=== PATIENT | male | born 1935 | race Caucasian/White ===

== ENCOUNTER → 2016-12-03 | Outpatient (CLI) | payer MEDICARE ==
[2015-05-19 19:59] VITALS: BP 117/65
[~2016-12-03] MED LIST: ASPI81TA44 PO; CALC-98 PO; DICY10CA3 PO; ESCI10TA PO; IOHEXOL 240 MG/ML 50ML VIAL. PO ONE; IOHEXOL 300 MG/ML 100ML VIAL. IV ONE; METO25TA4 PO; MULT-245 PO; PANT40TA3 PO; TRAM50TA PO
--- NOTE | 2016-12-03 15:24 | KCIC ---
PROCEDURE CT study of the abdomen and pelvis with contrast HISTORY Left lower quadrant abdominal pain. History of diverticulitis. TECHNIQUE After IV infusion of 100 cc of Omnipaque 300, helical CT scanning of the abdomen and pelvis was performed. GI contrast was administered per mouth. One or more of the following individualized dose reduction techniques were utilized for this study: 1. Automated exposure control 2. Adjustment of the mA and/or kV according to patient size 3. Use of iterative reconstruction technique COMPARISON October 11, 2014. FINDINGS The liver and spleen and pancreas and gallbladder are normal. No extrahepatic biliary ductal dilatation is seen. No adrenal mass is evident. A left renal cyst is seen. No hydronephrosis or hydroureter is seen on either side. A small cyst of the right kidney is seen. The urinary bladder wall is smooth. Prostate gland is unchanged in size. No focal aneurysmal dilatation of the abdominal aorta is seen. No enlarged abdominal or pelvic lymphadenopathy is seen. Colonic diverticulosis is seen without diverticulitis. The appendix is not identified but there are no CT findings of appendicitis. The terminal ileum is unremarkable. No obstructive bowel pattern is seen. No free air or free fluid or inflammatory change is evident. Small stable umbilical hernia is seen containing only fat. No new anterior abdominal wall hernia is evident. No lung base consolidation is evident. No osteolytic process is seen. IMPRESSION Colonic diverticulosis without diverticulitis. No acute abnormality of the abdomen or pelvis is seen. Electronically signed by: Vinicio Ramires MD (Dec 03, 2016 15:23:15)
== END | disposition home or self-care (01) ==
LOC: KCIC CT 13:18
PROVIDERS: ATTEND Internal Medicine Gastroenterology
DX: R10.9 Unspecified abdominal pain (principal)
CPT/HCPCS: 74177; 82565; Q9966; Q9967

== ENCOUNTER → 2017-01-27 | Outpatient (CLI) | payer MEDICARE ==
[2015-05-19 19:59] VITALS: BP 117/65
[~2017-01-27] MED LIST changes: -IOHEXOL 240 MG/ML 50ML VIAL. PO ONE; -IOHEXOL 300 MG/ML 100ML VIAL. IV ONE; +REGADENOSON 0.4 MG/5 ML DISP.SYRIN. IV ONE
--- NOTE | 2017-01-27 19:52 | RAD ---
APPROVED REPORT Test Type: Pharmacological Stress Nurse/Tech: ANNY POOLE Test Indications: CHEST PAIN Cardiac History: HYPOTENSION, HEART CATH -, SEE EHR Medications: SEE EHR Medical History: NONE STATED, SEE EHR Resting ECG: SR Resting Heart Rate: 62 bpm Resting Blood Pressure: 114/71mmHg Pretest Chest Pain: No chest pain Nurse/Tech Notes LUNG SOUNDS CLEAR, S1S2 WNL. Consent: The procedure was explained to the patient in lay terms. Informed consent was witnessed. Scott eout was entered into [employer]. History and Stress Test performed by [facility] [employer]. Details Pharmacologic stress testing was performed using 0.4mg per 5ml of regadenoson given intravenously ove r 7-10 seconds. Stress Symptoms STOMACH PAIN, FACIAL FLUSHING, CHEST HEAVINESS, ALL RESOLVED BY END OF STUDY. POST EXERCISE Reason for Termination: Infusion complete Max HR: 98 bpm Max Blood Pressure: 123/65mmHg Chest Pain: No. Arrhythmia: No. ST Change: No. Imaging Protocol IMAGE PROTOCOL: Rest Tc-99m/stress Tc-99m 1 day Rest: Stress: Viability: Radiopharm.Tc99m [id number] Sestamibi [id number] 35.5mCi Duration 17min. 15min. Img Date 01/27/2017 01/27/2017 Inj-Img [id number]. 60min. Rest Admin Site:IV - Right ForearmAdministrator:ARTIS Kwok Stress Admin Site: IV - Right ForearmAdministrator: ARTIS Kwok STRESS DATA End Diast. Vol.59.0mlAv. Heart Rate76.0bpm End Syst. Vol.13.0mlCO Index BSA0.0L/min Myocardial Jyvs411.0gEject. Wpoysrgn72.0% Stress Rates Pk. Fill Rate3.03EDV/secLVtime Pk. Fill 225.31msec Pk. Empty Rate4.95ESV/secLVtime Pk. Qhhcg442.69msec 10/05 Pk. Fill0.76EDV/sec Stress Scores Regional WT2.00Summed WT13.00 Regional WM0.00Summed WM1.00 LV Perf. Quant 17 Seg. SSS0.00 17 Seg. SRS0.00 17 Seg. SDS0.00 Stress Defect Extent (% LAD)0.00Rest Defect Extent (% LAD)0.00Rev. Defect Extent (% LAD)0.00 Stress Defect Extent (% LCX) 5.00Rest Defect Extent (% LCX)0.00Rev. Defect Extent (% LCX)0.00 Stress Defect Extent (% RCA)0.00Rest Defect Extent (% RCA)0.00Rev. Defect Extent (% RCA)0.00 Stress Defect Extent (% FLORENCE)0.90Rest Defect Extent (% FLORENCE)0.00Rev. Defect Extent (% FLORENCE)0.00 Conclusion 1. No electrocardiographic changes just above myocardial ischemia with pharmacological stress. 2. No perfusion defects to suggest myocardial ischemia or scar. 3. Normal wall motion and wall thickening with an ejection fraction of 78%. 4. Scan indicates low risk for future cardiac events.
== END | disposition home or self-care (01) ==
LOC: NM 09:09
PROVIDERS: ATTEND Internal Medicine Cardiovascular Disease
DX: I20.8 Other forms of angina pectoris (principal)
CPT/HCPCS: 78452; 93017; 96374; 96375; 96376; A9500; J2785

== ENCOUNTER → 2017-03-01 | Outpatient (CLI) | payer MEDICARE ==
[2015-05-19 19:59] VITALS: BP 117/65
[~2017-03-01] MED LIST changes: -REGADENOSON 0.4 MG/5 ML DISP.SYRIN. IV ONE
--- NOTE | 2017-03-01 15:24 | KCIC ---
EXAM: Lumbar spine MRI without contrast. HISTORY: Left lower extremity radiculopathy. TECHNIQUE: Multiplanar, multisequence magnetic resonance imaging of the lumbar spine was performed without contrast. COMPARISON: 10/09/2014. FINDINGS: There is lumbar dextroscoliosis centered at L3. There is grade 1 anterolisthesis of L4 on L5 and L5-S1, measuring 3 mm. There is degenerative endplate remodeling with disc space narrowing and osteophytosis predominantly at L4-L5 and L5-S1. There is disc desiccation. The conus terminates at L1. There are multiple endplate Schmorl's nodes. There is no suspicious osseous lesion. There is mild epidural lipomatosis at L3-L4. There are multiple simple appearing renal cysts, the largest of which measures 2.1 cm on the left. At T11-T12, there is a disc bulge and endplate remodeling. There is mild facet arthropathy. There is mild bilateral foraminal stenosis. At T12-L1, there is a disc bulge and endplate remodeling. There is mild facet arthropathy. There is hypertrophy of the ligamentum flavum. There is no stenosis. At L1-L2, there is a disc bulge and endplate remodeling. There is mild hypertrophy of the ligamentum flavum. There is no stenosis. At L2-L3, there is a left paracentral extraforaminal extraforaminal and right foraminal disc protrusion superimposed on a disc bulge and endplate remodeling. There is mild facet arthropathy. There is hypertrophy of the ligamentum flavum. There is abutment of the exiting left L2 nerve root without significant foraminal stenosis. There is minimal central canal stenosis. At L3-L4, there is a disc bulge and endplate remodeling. There is mild facet arthropathy. There is epidural lipomatosis. There is mild central canal stenosis. At L4-L5, there is a broad-based posterior central disc protrusion superimposed on a disc bulge and right lateral predominant endplate osteophytosis. There is mild right and severe left facet arthropathy. There are right hemilaminectomy changes. There is anterolisthesis. There is moderate right foraminal stenosis with effacement of the exiting right L4 nerve root. There is abutment of the exiting left L4 nerve root without significant left foraminal stenosis. There is decompression of the thecal sac. At L5-S1, there is a left foraminal and extra foraminal disc protrusion with slight superior extrusion superimposed on a disc bulge and endplate modeling. There is a moderate viral facet arthropathy. There is anterolisthesis. There is mild left foraminal stenosis with abutment of the exiting left L5 nerve root. There is minimal central canal stenosis. IMPRESSION: 1. 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 This results in foraminal and central canal stenosis before mentioned levels. This is similar compared to the prior study. 2. Lumbar scoliosis and mild grade 1 anterolisthesis of L4 on L5 and L5 on S1, stable in appearance. 3. Right hemilaminectomy changes at L4-5. Electronically signed by: Chiquita Henderson MD (03/01/2017 3:21 PM)
--- NOTE | 2017-03-01 16:55 | KCIC ---
MR of the musculoskeletal pelvis HISTORY: Left ischial tuberosity bursitis. Pain, aggravated by a lateral movement. TECHNIQUE: Routine multiplanar sequences were obtained. FINDINGS: Near complete rupture of the conjoint tendon of the semitendinosis and long head of the biceps femoris, from the ischium. At least 90 percent of the tendon tissue is torn. Mild distal retraction, up to 3 cm. Mild fluid and hemorrhage identified at the location of the tear and extending into the proximal muscle. Mild avulsive or degenerative edema at the underlying ischium. The semimembranosus tendon attachment demonstrates some tendinosis but otherwise appears mostly intact at its ischial origin. Mild tendinosis at the right hamstring tendon attachment without evidence of a tear. Other major tendon attachment in the field of view appear intact. No bone lesion or acute fracture. No evidence of femoral head osteonecrosis. Pubic symphysis is intact. No significant joint effusion at either hip. No evidence of obvious labral tear or para labral cyst. Mild primary osteoarthritis of both hips. Sacroiliac joints appear intact. Mild fluid signal identified lateral to the right greater trochanter, could indicate mild bursitis here. There is probable gluteus minimus and medius tendinosis on the right. These are incompletely visualized, however. IMPRESSION: 1. Proximal left hamstring tear at the ischial attachment. This consists of a near complete rupture of the conjoint semitendinosis and biceps femoris tendon. 2. Mild fluid or bursitis adjacent to the right greater trochanter. Although visualization is limited, there does appear to be mild right gluteus minimus and medius tendinosis. Electronically signed by: Vickey Mao MD (03/01/2017 4:52 PM)
== END | disposition home or self-care (01) ==
LOC: KCIC MRI 13:42
PROVIDERS: ATTEND Physical Medicine & Rehabilitation
DX: M54.16 Radiculopathy, lumbar region (principal); M48.06 Spinal stenosis, lumbar region; M41.86 Other forms of scoliosis, lumbar region; N28.1 Cyst of kidney, acquired; M76.892 Other specified enthesopathies of left lower limb, excluding foot; M12.88 Other specific arthropathies, not elsewhere classified, other specified site
CPT/HCPCS: 72148; 72195

== ENCOUNTER 2017-03-05 13:00 | Inpatient (IN) | payer MEDICARE ==
[~2017-03-05] VITALS: Ht 170.2 cm; Wt 93.4 kg
[2017-03-05] MEDS ORDERED: IV NORMAL SALINE 1000ML BAG 1,000 ML IV ONE ×2 (13:30→14:30)
--- NOTE | 2017-03-05 13:37 | RAD ---
Indication: Chest pain. Time of exam 1331 hours. Correlation is made with prior study 11/19/2011. FINDINGS: The heart size is normal. The lungs are clear. No pleural effusion or pneumothorax is identified. The pulmonary vascularity is normal. IMPRESSION: No acute abnormality detected.
[2017-03-05 13:41] LABS: BASO # 0.1 x10^3/uL (0.0-0.2); BASO % 1 % (0-3); EOS % 4 % (0-3); HEMATOCRIT 44.1 % (39.0-53.0); HEMOGLOBIN 15.4 g/dL (13.0-17.5); LYMPH # 2.3 x10^3/uL (1.0-4.8); LYMPH % 24 % (24-48); MEAN CORPUSCULAR HEMOGLOBIN 33 pg (25-35); MEAN CORPUSCULAR HGB CONC 35 g/dL (31-37); MEAN CORPUSCULAR VOLUME 95 fL (79-100); MONO % 8 % (0-9); NEUT % 64 % (31-73); PLATELET COUNT 227 x10^3/uL (140-400); RED BLOOD COUNT 4.63 x10^6/uL (4.30-5.70); RED CELL DISTRIBUTION WIDTH 12.8 % (11.5-14.5); WHITE BLOOD COUNT 9.6 x10^3/uL (4.0-11.0)
[2017-03-05 13:49] LABS: INR 1.1 (0.8-1.1); PROTHROMBIN TIME PATIENT 13.9 SEC (11.7-14.0)
[2017-03-05 13:52] LABS: GFR 71.9; POTASSIUM 4.1 mmol/L (3.5-5.1)
[2017-03-05 13:55] LABS: ETHANOL < 10 mg/dL (0-10)
--- NOTE | 2017-03-05 13:56 | RAD ---
Indication: General weakness. Axial imaging through the brain was performed without contrast. Correlation is made with prior head CT from 11/19/2011. The ventricles and sulci appear appropriate for the patient's age. No sulcal effacement, midline shift or hemorrhage is detected. The cisterns are patent. The visualized paranasal sinuses are clear. Impression: No acute intracranial process is identified. PQRS Compliance Statement: One or more of the following individualized dose reduction techniques were utilized for this examination: 1. Automated exposure control 2. Adjustment of the mA and/or kV according to patient size 3. Use of iterative reconstruction technique
[2017-03-05 13:58] LABS: ALBUMIN 3.6 g/dL (3.4-5.0); TOTAL BILIRUBIN 0.6 mg/dL (0.2-1.0); TOTAL PROTEIN 7.2 g/dL (6.4-8.2)
--- NOTE | 2017-03-05 14:06 | PHYS DOC ---
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 He says that this started all of a sudden this morning around 8 AM and he has been feeling poorly all day long. He says that he feels some abnormal sensation on his chest but denies any diaphoresis nausea vomiting or shortness of breath. He looks and feels very poorly but he is in no obvious distress. Review of Systems Review of Systems Constitutional: Denies fever or chills [] Eyes: Denies change in visual acuity, redness, or eye pain [] HENT: Denies nasal congestion or sore throat [] Respiratory: Denies cough or shortness of breath [] Cardiovascular: No additional information not addressed in HPI [] GI: Denies abdominal pain, nausea, vomiting, bloody stools or diarrhea [] : Denies dysuria or hematuria [] Musculoskeletal: Denies back pain or joint pain [] Integument: Denies rash or skin lesions [] Neurologic: Denies headache, focal weakness or sensory changes [] Current Medications Current Medications Current Medications Medications (Trade) Dose Ordered Sig/Chepe Start Time Stop Time Status Last Admin Dose Admin Sodium Chloride 1,000 ml @ 1,000 mls/hr 1X ONCE 03/05/17 13:30 03/05/17 14:29 DC 03/05/17 13:46 1,000 MLS/HR Allergies Allergies Allergies Coded Allergies Type Severity Reaction Last Updated Verified metronidazole Allergy Unknown 03/01/17 No Physical Exam Physical Exam Constitutional: Well developed, well nourished, no acute distress, non-toxic appearance. [] HENT: Normocephalic, atraumatic, bilateral external ears normal, oropharynx moist, no oral exudates, nose normal. [] Eyes: PERRLA, EOMI, conjunctiva normal, no discharge. [] Neck: Normal range of motion, no tenderness, supple, no stridor. [] Cardiovascular:Heart rate regular rhythm, no murmur [] Lungs & Thorax: Bilateral breath sounds clear to auscultation [] Abdomen: Bowel sounds normal, soft, no tenderness, no masses, no pulsatile masses. [] Skin: Warm, dry, no erythema, no rash. [] Back: No tenderness, no CVA tenderness. [] Extremities: No tenderness, no cyanosis, no clubbing, ROM intact, no edema. [] Neurologic: Alert and oriented X 3, normal motor function, normal sensory function, no focal deficits noted. [] Current Patient Data Vital Signs Vital Signs Date Time Temp Pulse Resp B/P (MAP) Pulse Ox O2 Delivery O2 Flow Rate FiO2 03/05/17 13:08 97.7 72 18 122/71 (88) 97 Room Air 97.7 Lab Values Laboratory Tests Test 03/05/17 13:25 White Blood Count 9.6 x10^3/uL (4.0-11.0) Red Blood Count 4.63 x10^6/uL (4.30-5.70) Hemoglobin 15.4 g/dL (13.0-17.5) Hematocrit 44.1 % (39.0-53.0) Mean Corpuscular Volume 95 fL (79-100) Mean Corpuscular Hemoglobin 33 pg (25-35) Mean Corpuscular Hemoglobin Concent 35 g/dL (31-37) Red Cell Distribution Width 12.8 % (11.5-14.5) Platelet Count 227 x10^3/uL (140-400) Neutrophils (%) (Auto) 64 % (31-73) Lymphocytes (%) (Auto) 24 % (24-48) Monocytes (%) (Auto) 8 % (0-9) Eosinophils (%) (Auto) 4 % (0-3) H Basophils (%) (Auto) 1 % (0-3) Neutrophils # (Auto) 6.1 x10^3uL (1.8-7.7) Lymphocytes # (Auto) 2.3 x10^3/uL (1.0-4.8) Monocytes # (Auto) 0.7 x10^3/uL (0.0-1.1) Eosinophils # (Auto) 0.4 x10^3/uL (0.0-0.7) Basophils # (Auto) 0.1 x10^3/uL (0.0-0.2) Prothrombin Time 13.9 SEC (11.7-14.0) Prothrombin Time INR 1.1 (0.8-1.1) PTT 34 SEC (24-38) Sodium Level 141 mmol/L (136-145) Potassium Level 4.1 mmol/L (3.5-5.1) Chloride Level 105 mmol/L (98-107) Carbon Dioxide Level 27 mmol/L (21-32) Anion Gap 9 (6-14) Blood Urea Nitrogen 19 mg/dL (8-26) Creatinine 1.0 mg/dL (0.7-1.3) Estimated GFR (Cockcroft-Gault) 71.9 BUN/Creatinine Ratio 19 (6-20) Glucose Level 136 mg/dL (70-99) H Lactic Acid Level 2.0 mmol/L (0.4-2.0) Calcium Level 9.0 mg/dL (8.5-10.1) Magnesium Level 2.0 mg/dL (1.8-2.4) Total Bilirubin 0.6 mg/dL (0.2-1.0) Aspartate Amino Transferase (AST) 24 U/L (15-37) Alanine Aminotransferase (ALT) 26 U/L (16-63) Alkaline Phosphatase 77 U/L (46-116) Creatine Kinase 107 U/L (39-308) Troponin I Quantitative < 0.017 ng/mL (0.000-0.055) PI-Bft-Q-Type Natriuretic Peptide 36 pg/mL (0-449) Total Protein 7.2 g/dL (6.4-8.2) Albumin 3.6 g/dL (3.4-5.0) Albumin/Globulin Ratio 1.0 (1.0-1.7) Lipase 117 U/L (73-393) Thyroid Stimulating Hormone (TSH) 1.172 uIU/mL (0.358-3.74) Salicylates Level < 2.8 mg/dL (2.8-20.0) L Salicylate Last Dose Date Unknown Salicylate Last Dose Time Unknown Acetaminophen Level < 2 mcg/ml (10-30) L Acetaminophen Last Dose Date Unknown Acetaminophen Last Dose Time Unknown Ethyl Alcohol Level < 10 mg/dL (0-10) Laboratory Tests 03/05/17 13:25 Laboratory Tests 03/05/17 13:25 EKG EKG Sinus rhythm at 64 bpm with normal axis no obvious ST elevation or depression and normal T waves. Radiology/Procedures Radiology/Procedures Indication: General weakness. Axial imaging through the brain was performed without contrast. Correlation is made with prior head CT from 11/19/2011. The ventricles and sulci appear appropriate for the patient's age. No sulcal effacement, midline shift or hemorrhage is detected. The cisterns are patent. The visualized paranasal sinuses are clear. Impression: No acute intracranial process is identified. PQRS Compliance Statement: One or more of the following individualized dose reduction techniques were utilized for this examination: 1. Automated exposure control 2. Adjustment of the mA and/or kV according to patient size 3. Use of iterative reconstruction technique DICTATED and SIGNED BY: DEANN MAYER MD DATE: 03/05/17 7715 Course & Med Decision Making Course & Med Decision Making Patient has nonspecific weakness however he looks like he feels quite miserable. His workup is mostly benign be given how he looks and feels we'll go ahead and admit for further observation and treatment. Dragon Disclaimer Dragon Disclaimer This electronic medical record was generated, in whole or in part, using a voice recognition dictation system. Departure Departure Impression: Primary Impression: Weakness Disposition: ADMITTED INPATIENT Admitting Physician: Elizabeth Delgado Condition: STABLE Referrals: TWIN CALDERON (PCP) LAMONT AHUMADA DO Mar 05, 2017 14:05
[2017-03-05] MEDS ORDERED: ONDANSETRON PF 4 MG/2 ML VIAL. IV PRN (14:45)
[2017-03-05] MEDS ORDERED: fentaNYL PF VIAL 100 MCG/2 ML VIAL IV PRN (14:45)
[2017-03-05] MEDS ORDERED: ONDANSETRON PF 4 MG/2 ML VIAL. IV ONE (15:00)
[2017-03-05 15:45] LABS: BILIRUBIN,URINE NEGATIVE (NEG); GLUCOSE,URINE NEGATIVE (NEG); NITRITE,URINE NEGATIVE (NEG); PROTEIN,URINE NEGATIVE (NEG-TRACE); UROBILINOGEN,URINE 0.2 mg/dL (0.2 mg/dL)
[2017-03-05 15:50] VITALS: BP 131/78
[2017-03-05 16:03] LABS: BARBITURATES NEG (NEG); BENZODIAZEPINES NEG (NEG); CANNABINOIDS NEG (NEG); COCAINE NEG (NEG); METHADONE NEG (NEG); OPIATES NEG (NEG); PHENCYCLIDINE NEG (NEG)
[2017-03-05 16:04] LABS: BACTERIA,URINE 0 /HPF (0-FEW); RBC,URINE 0 /HPF (0-2); WBC,URINE RARE /HPF (0-4)
[2017-03-05] MEDS ORDERED: PNEUMOCOCCAL VAX SCREEN BY RX. MC ONE (16:30)
[2017-03-05] MEDS ORDERED: TRAM50TA PO (17:02)
[2017-03-05] MEDS ORDERED: ALPR0.5T6 PO (17:02)
[2017-03-05] MEDS ORDERED: METO25TA4 PO (17:03)
[2017-03-05] MEDS ORDERED: PANT40TA5 PO (17:03)
[2017-03-05] MEDS ORDERED: PNEUMOC CONJ VACC 23-VALENT 0.5 ML VIAL. VAX IM ONE (18:00)
--- NOTE | 2017-03-05 18:54 | HP ---
ADMIT DATE: 03/05/2017 CHIEF COMPLAINT: Weakness. HISTORY OF PRESENT ILLNESS: The patient is a pleasant 81-year-old male who appears younger than his stated age. 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 He basically was doing well, but this Tuesday he just got very weak. When he got to the ER, we scanned his brain. We have checked his labs. There is really not much that we have discovered just yet, but the patient clinically seems to be sick. He is a little depressed about this. I have discussed the case with the ER physician. We are going to go ahead and admit the patient and consult his counter attendant, Dr. Mccormack, and give him some empiric IV fluids. PAST MEDICAL HISTORY: Pretty benign. Please refer to the computerized H and P. ALLERGIES: None. FAMILY HISTORY: Diabetes. 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 He does not drink, smoke, or take drugs. He is . MEDICATIONS: Reviewed. Please refer to the MRAD. REVIEW OF SYSTEMS: GENERAL: No history of weight change, weakness, or fevers. SKIN: No bruising, hair changes, or rashes. EYES: No blurred, double, or loss of vision. NOSE AND THROAT: No history of nosebleeds, hoarseness, or sore throat. HEART: No history of palpitations, chest pain, or shortness of breath on exertion. LUNGS: Denies cough, hemoptysis, wheezing, or shortness of breath. GASTROINTESTINAL: Denies changes in appetite, nausea, vomiting, diarrhea, or constipation. GENITOURINARY: No history of frequency, urgency, hesitancy, or nocturia. NEUROLOGIC: He complains of generalized weakness. PSYCHIATRIC: No history of panic, anxiety, or depression. ENDOCRINE: No history of heat or cold intolerance, polyuria, or polydipsia. EXTREMITIES: Denies muscle weakness, joint pain, pain on walking, or stiffness. PHYSICAL EXAMINATION: VITAL SIGNS: Temperature afebrile, pulse 68, respirations 18, and blood pressure 116/71. GENERAL: He is alert, cooperative, weak. HEART: Normal S1, S2. LUNGS: Clear. ABDOMEN: Soft. EXTREMITIES: No edema. SKIN: No rashes. ENDOCRINE: No thyromegaly. LYMPHATICS: No cervical nodes. HEMATOPOIETIC: No bruising. PSYCHIATRIC: He seems a little depressed. LABORATORY DATA: Reviewed. ASSESSMENT AND PLAN: Weakness and perhaps psychosomatic. Perhaps, he has got underlying occult infection. I am going to go ahead and give him some empiric IV fluids. Consult his counter attendant, Dr. Mccormack. We will try to slowly resume his home medications. PT and OT. KVNG ALCANTAR DO DR: ABDIRASHID/osmar JOB#: [id number] / [id number]
[2017-03-05 19:00] VITALS: BP 93/57
[2017-03-05] MEDS ORDERED: traMADol 50 MG TABLET PO PRN (19:30)
[2017-03-05] MEDS: PANTOPRAZOLE 40 MG TABLET.DR. PO SCH (20:11)
[2017-03-05] MEDS: ALPRAZolam 0.5 MG TABLET PO PRN (20:11)
[2017-03-05 23:00] VITALS: BP 117/74
[2017-03-06 03:00] VITALS: BP 118/70
[2017-03-06] MEDS: METOPROLOL TART IMMED RELEASE 25 MG TABLET. PO SCH ×2 (03:21→09:04)
[2017-03-06 06:07] LABS: BASO # 0.1 x10^3/uL (0.0-0.2); BASO % 1 % (0-3); EOS % 4 % (0-3); HEMATOCRIT 41.5 % (39.0-53.0); HEMOGLOBIN 14.6 g/dL (13.0-17.5); LYMPH # 2.6 x10^3/uL (1.0-4.8); LYMPH % 26 % (24-48); MEAN CORPUSCULAR HEMOGLOBIN 33 pg (25-35); MEAN CORPUSCULAR HGB CONC 35 g/dL (31-37); MEAN CORPUSCULAR VOLUME 93 fL (79-100); MONO % 9 % (0-9); NEUT % 61 % (31-73); PLATELET COUNT 209 x10^3/uL (140-400); RED BLOOD COUNT 4.45 x10^6/uL (4.30-5.70); RED CELL DISTRIBUTION WIDTH 12.9 % (11.5-14.5); WHITE BLOOD COUNT 10.1 x10^3/uL (4.0-11.0)
[2017-03-06 06:16] LABS: CALCIUM 8.8 mg/dL (8.5-10.1); CREATININE 1.1 mg/dL (0.7-1.3); GFR 64.4; POTASSIUM 4.1 mmol/L (3.5-5.1)
--- NOTE | 2017-03-06 07:23 | ACF ---
Admission Forms Criteria TELEMETRY CARE Telemetry Admission Guidelines (Place 'X' for any and all applicable criteria): Admission to telemetry [A] may be indicated for ANY ONE of the following(1)(2)(3 )(4)(5): [X]I. Cardiac disease, including ANY ONE of the following (9)(10)(11)(12)(13 ): [ ]a) Postacute TX [ ]b) Low-risk patients with ST-segment elevation TX who have undergone successful percutaneous coronary intervention [ ]c) Unstable angina [ ]d) Suspected TX (until it is ruled out) [ ]e) Post cardiac surgery (first 48 to 72 hours unless complications occur) [X]f) Acute arrhythmias (including significant tachycardia or bradycardia) [B] [ ]g) Firing of an implantable cardioverter defibrillator [C] [ ]h) Suspected pacemaker or implantable cardioverter defibrillator malfunction (10) [ ]i) New administration or adjustment of an antiarrhythmic drug [D ] [ ]j) Child admitted for acute congestive heart failure [ ]j) Long QT syndrome [ ]k) Advanced heart block (eg, second-degree Mobitz type II, third- degree heart block) [ ]l) Acute myocarditis or pericarditis [ ]m) Short-term (ambulatory or inpatient) monitoring after a cardiac procedure as indicated by ANY ONE of the following [E]: [ ]i) Electrophysiologic studies [ ]ii) Percutaneous coronary intervention with stent placement [ ]iii) Pacemaker placement with cardiac conduction defect [ ]iv) Implantable cardiac defibrillator placement [ ]II. Drug overdose or poisoning with substance that causes arrhythmias or QT prolongation (eg, phenothiazines, sympathomimetic agents, cyclic antidepressants, digitalis, antiarrhythmic drugs)(15) [ ]III. Short-term (ambulatory or inpatient) monitoring after therapeutic or diagnostic procedure requiring conscious sedation or anesthesia (eg, endoscopy, elective cardioversion) [ ]IV. Acute cerebrovascular even[F](18) [ ]V. Massive blood transfusion (eg, at least 10 units of packed red blood cells in 24 hours) [ ]. Variceal bleeding after endoscopy, sclerotherapy, or IV vasopressin [ ]VII. Uncorrected electrolyte abnormalities associated with an increased risk of dangerous arrhythmia [G]; examples include [ ]a) Hyperkalemia with attributable ECG changes [ ]b) Potassium greater than 6.5 mmol/L (mEq/L) in a patient without history of chronic renal disease [ ]c) Prolonged QT attributed to hypokalemia, hypomagnesemia, or hypocalcemia [ ]VIII.Unexplained syncope or other neurologic event suspected of being due to arrhythmia due to a finding that increases risk; examples include(19)(20)(21): [ ]a) High-risk ECG findings (eg, bifascicular block, bradycardia, abnormal QT interval, ventricular pre- excitation) [ ]b) History of previous syncope due to arrhythmia [ ]c) Abnormal ventricular function (eg, reduced ejection fraction ) [ ]d) Exertional or supine syncope [ ]e) Concerning syncope characteristics (eg, sudden loss of consciousness without prodrome) [ ]f) Family history of sudden [ ]g) Use of arrhythmogenic medication [ ]h) Suspected cardiac ischemia [ ]i) Known channelopathy (eg, long QT syndrome, Brugada syndrome, or catecholaminergic paroxysmal ventricular tachycardia) [ ]j) Known structural heart disease (eg, hypertrophic cardiomyopathy , severe valvular disease) [ ]k) Palpitations preceding syncope The original Monitor content created by Monitor has been revised. The portions of the content which have been revised are identified through the use of italic text or in bold, and Monitor has neither reviewed nor approved the modified material. All other unmodified content is copyright Monitor. Please see references footnoted in the original Monitor edition 2016 Admission Criteria Met?: Yes DAYNA SAXENA Mar 06, 2017 07:23
[2017-03-06] MEDS: PANTOPRAZOLE 40 MG TABLET.DR. PO SCH (07:38)
[2017-03-06] MEDS: ALPRAZolam 0.5 MG TABLET PO PRN (07:38)
[2017-03-06 07:45] VITALS: BP 143/79
[2017-03-06] MEDS ORDERED: ASPIRIN CHEWABLE 81 MG TABLET. PO SCH (08:00)
[2017-03-06 10:42] VITALS: BP 115/67
--- NOTE | 2017-03-06 11:26 | EKG ---
[facility] [address] [place] [address] Test Date: 2017-03-05 Test Time: 13:10:57 Pat Name: NABOR GRIFFITHS Department: Room: [facility] Gender: M Prescriptionist: : 1935 Requested By: LAMONT AHUMADA Order Number: [id number] Reading MD: Aldo Mendieta Measurements Intervals [place] [employer] Rate: 64 P: 34 NV: 190 QRS: 29 QRSD: 90 T: 39 QT: 392 QTc: 408 Interpretive Statements SINUS RHYTHM NONSPECIFIC ST-T WAVE CHANGES. RI6.01 No previous ECG available for comparison Electronically Signed On 03-09-2017 9:42:09 CDT by Aldo Mendieta
--- NOTE | 2017-03-06 12:38 | PDOC ---
PROGRESS NOTES Chief Complaint Chief Complaint weakness History of Present Illness History of Present Illness Pt back to baseline. VSS Will discharge Vitals Vitals Vital Signs Date Time Temp Pulse Resp B/P (MAP) Pulse Ox O2 Delivery O2 Flow Rate FiO2 03/06/17 10:42 97.5 65 18 115/67 (83) 94 Room Air 97.5 Physical Exam General: Alert, Oriented X3, Cooperative Heart: Regular rate, Normal S1, Normal S2 Lungs: Clear, Wheezing Abdomen: Normal bowel sounds, Soft Extremities: No clubbing, No cyanosis Skin: No rashes, No breakdown Labs LABS Laboratory Tests Test 03/05/17 13:25 03/05/17 15:34 03/06/17 05:00 White Blood Count 9.6 x10^3/uL (4.0-11.0) 10.1 x10^3/uL (4.0-11.0) Red Blood Count 4.63 x10^6/uL (4.30-5.70) 4.45 x10^6/uL (4.30-5.70) Hemoglobin 15.4 g/dL (13.0-17.5) 14.6 g/dL (13.0-17.5) Hematocrit 44.1 % (39.0-53.0) 41.5 % (39.0-53.0) Mean Corpuscular Volume 95 fL (79-100) 93 fL (79-100) Mean Corpuscular Hemoglobin 33 pg (25-35) 33 pg (25-35) Mean Corpuscular Hemoglobin Concent 35 g/dL (31-37) 35 g/dL (31-37) Red Cell Distribution Width 12.8 % (11.5-14.5) 12.9 % (11.5-14.5) Platelet Count 227 x10^3/uL (140-400) 209 x10^3/uL (140-400) Neutrophils (%) (Auto) 64 % (31-73) 61 % (31-73) Lymphocytes (%) (Auto) 24 % (24-48) 26 % (24-48) Monocytes (%) (Auto) 8 % (0-9) 9 % (0-9) Eosinophils (%) (Auto) 4 % (0-3) 4 % (0-3) Basophils (%) (Auto) 1 % (0-3) 1 % (0-3) Neutrophils # (Auto) 6.1 x10^3uL (1.8-7.7) 6.2 x10^3uL (1.8-7.7) Lymphocytes # (Auto) 2.3 x10^3/uL (1.0-4.8) 2.6 x10^3/uL (1.0-4.8) Monocytes # (Auto) 0.7 x10^3/uL (0.0-1.1) 0.9 x10^3/uL (0.0-1.1) Eosinophils # (Auto) 0.4 x10^3/uL (0.0-0.7) 0.4 x10^3/uL (0.0-0.7) Basophils # (Auto) 0.1 x10^3/uL (0.0-0.2) 0.1 x10^3/uL (0.0-0.2) Prothrombin Time 13.9 SEC (11.7-14.0) Prothromb Time International Ratio 1.1 (0.8-1.1) Activated Partial Thromboplast Time 34 SEC (24-38) Sodium Level 141 mmol/L (136-145) 142 mmol/L (136-145) Potassium Level 4.1 mmol/L (3.5-5.1) 4.1 mmol/L (3.5-5.1) Chloride Level 105 mmol/L (98-107) 108 mmol/L (98-107) Carbon Dioxide Level 27 mmol/L (21-32) 26 mmol/L (21-32) Anion Gap 9 (6-14) 8 (6-14) Blood Urea Nitrogen 19 mg/dL (8-26) 16 mg/dL (8-26) Creatinine 1.0 mg/dL (0.7-1.3) 1.1 mg/dL (0.7-1.3) Estimated GFR (Cockcroft-Gault) 71.9 64.4 BUN/Creatinine Ratio 19 (6-20) Glucose Level 136 mg/dL (70-99) 105 mg/dL (70-99) Lactic Acid Level 2.0 mmol/L (0.4-2.0) Calcium Level 9.0 mg/dL (8.5-10.1) 8.8 mg/dL (8.5-10.1) Magnesium Level 2.0 mg/dL (1.8-2.4) Total Bilirubin 0.6 mg/dL (0.2-1.0) Aspartate Amino Transf (AST/SGOT) 24 U/L (15-37) Alanine Aminotransferase (ALT/SGPT) 26 U/L (16-63) Alkaline Phosphatase 77 U/L (46-116) Creatine Kinase 107 U/L (39-308) Troponin I Quantitative < 0.017 ng/mL (0.000-0.055) EI-Qng-C-Type Natriuretic Peptide 36 pg/mL (0-449) Total Protein 7.2 g/dL (6.4-8.2) Albumin 3.6 g/dL (3.4-5.0) Albumin/Globulin Ratio 1.0 (1.0-1.7) Lipase 117 U/L (73-393) Thyroid Stimulating Hormone (TSH) 1.172 uIU/mL (0.358-3.74) Salicylates Level < 2.8 mg/dL (2.8-20.0) Salicylate Last Dose Date Unknown Salicylate Last Dose Time Unknown Acetaminophen Level < 2 mcg/ml (10-30) Acetaminophen Last Dose Date Unknown Acetaminophen Last Dose Time Unknown Ethyl Alcohol Level < 10 mg/dL (0-10) Urine Collection Type Unknown Urine Color Yellow Urine Clarity Clear Urine pH 7.0 Urine Specific [place] 1.010 Urine Protein Negative mg/dL (NEG-TRACE) Urine Glucose (UA) Negative mg/dL (NEG) Urine Ketones (Stick) Negative mg/dL (NEG) Urine Blood Negative (NEG) Urine Nitrite Negative (NEG) Urine Bilirubin Negative (NEG) Urine Urobilinogen Dipstick 0.2 mg/dL (0.2 mg/dL) Urine Leukocyte Esterase Negative (NEG) Urine RBC 0 /HPF (0-2) Urine WBC Rare /HPF (0-4) Urine Squamous Epithelial Cells None /LPF Urine Bacteria 0 /HPF (0-FEW) Urine Opiates Screen Neg (NEG) Urine Methadone Screen Neg (NEG) Urine Barbiturates Neg (NEG) Urine Phencyclidine Screen Neg (NEG) Urine Amphetamine/Methamphetamine Neg (NEG) Urine Benzodiazepines Screen Neg (NEG) Urine Cocaine Screen Neg (NEG) Urine Cannabinoids Screen Neg (NEG) Urine Ethyl Alcohol Neg (NEG) Assessment and Plan Assessmemt and Plan Resolving weakness Discharge Total time 31 minutes Problems: Comment Review of Relevant I have reviewed the following items katie (where applicable) has been applied. Labs Laboratory Tests Test 03/05/17 13:25 03/05/17 15:34 03/06/17 05:00 White Blood Count 9.6 x10^3/uL (4.0-11.0) 10.1 x10^3/uL (4.0-11.0) Red Blood Count 4.63 x10^6/uL (4.30-5.70) 4.45 x10^6/uL (4.30-5.70) Hemoglobin 15.4 g/dL (13.0-17.5) 14.6 g/dL (13.0-17.5) Hematocrit 44.1 % (39.0-53.0) 41.5 % (39.0-53.0) Mean Corpuscular Volume 95 fL (79-100) 93 fL (79-100) Mean Corpuscular Hemoglobin 33 pg (25-35) 33 pg (25-35) Mean Corpuscular Hemoglobin Concent 35 g/dL (31-37) 35 g/dL (31-37) Red Cell Distribution Width 12.8 % (11.5-14.5) 12.9 % (11.5-14.5) Platelet Count 227 x10^3/uL (140-400) 209 x10^3/uL (140-400) Neutrophils (%) (Auto) 64 % (31-73) 61 % (31-73) Lymphocytes (%) (Auto) 24 % (24-48) 26 % (24-48) Monocytes (%) (Auto) 8 % (0-9) 9 % (0-9) Eosinophils (%) (Auto) 4 % (0-3) 4 % (0-3) Basophils (%) (Auto) 1 % (0-3) 1 % (0-3) Neutrophils # (Auto) 6.1 x10^3uL (1.8-7.7) 6.2 x10^3uL (1.8-7.7) Lymphocytes # (Auto) 2.3 x10^3/uL (1.0-4.8) 2.6 x10^3/uL (1.0-4.8) Monocytes # (Auto) 0.7 x10^3/uL (0.0-1.1) 0.9 x10^3/uL (0.0-1.1) Eosinophils # (Auto) 0.4 x10^3/uL (0.0-0.7) 0.4 x10^3/uL (0.0-0.7) Basophils # (Auto) 0.1 x10^3/uL (0.0-0.2) 0.1 x10^3/uL (0.0-0.2) Prothrombin Time 13.9 SEC (11.7-14.0) Prothromb Time International Ratio 1.1 (0.8-1.1) Activated Partial Thromboplast Time 34 SEC (24-38) Sodium Level 141 mmol/L (136-145) 142 mmol/L (136-145) Potassium Level 4.1 mmol/L (3.5-5.1) 4.1 mmol/L (3.5-5.1) Chloride Level 105 mmol/L (98-107) 108 mmol/L (98-107) Carbon Dioxide Level 27 mmol/L (21-32) 26 mmol/L (21-32) Anion Gap 9 (6-14) 8 (6-14) Blood Urea Nitrogen 19 mg/dL (8-26) 16 mg/dL (8-26) Creatinine 1.0 mg/dL (0.7-1.3) 1.1 mg/dL (0.7-1.3) Estimated GFR (Cockcroft-Gault) 71.9 64.4 BUN/Creatinine Ratio 19 (6-20) Glucose Level 136 mg/dL (70-99) 105 mg/dL (70-99) Lactic Acid Level 2.0 mmol/L (0.4-2.0) Calcium Level 9.0 mg/dL (8.5-10.1) 8.8 mg/dL (8.5-10.1) Magnesium Level 2.0 mg/dL (1.8-2.4) Total Bilirubin 0.6 mg/dL (0.2-1.0) Aspartate Amino Transf (AST/SGOT) 24 U/L (15-37) Alanine Aminotransferase (ALT/SGPT) 26 U/L (16-63) Alkaline Phosphatase 77 U/L (46-116) Creatine Kinase 107 U/L (39-308) Troponin I Quantitative < 0.017 ng/mL (0.000-0.055) EI-Vqu-Y-Type Natriuretic Peptide 36 pg/mL (0-449) Total Protein 7.2 g/dL (6.4-8.2) Albumin 3.6 g/dL (3.4-5.0) Albumin/Globulin Ratio 1.0 (1.0-1.7) Lipase 117 U/L (73-393) Thyroid Stimulating Hormone (TSH) 1.172 uIU/mL (0.358-3.74) Salicylates Level < 2.8 mg/dL (2.8-20.0) Salicylate Last Dose Date Unknown Salicylate Last Dose Time Unknown Acetaminophen Level < 2 mcg/ml (10-30) Acetaminophen Last Dose Date Unknown Acetaminophen Last Dose Time Unknown Ethyl Alcohol Level < 10 mg/dL (0-10) Urine Collection Type Unknown Urine Color Yellow Urine Clarity Clear Urine pH 7.0 Urine Specific [place] 1.010 Urine Protein Negative mg/dL (NEG-TRACE) Urine Glucose (UA) Negative mg/dL (NEG) Urine Ketones (Stick) Negative mg/dL (NEG) Urine Blood Negative (NEG) Urine Nitrite Negative (NEG) Urine Bilirubin Negative (NEG) Urine Urobilinogen Dipstick 0.2 mg/dL (0.2 mg/dL) Urine Leukocyte Esterase Negative (NEG) Urine RBC 0 /HPF (0-2) Urine WBC Rare /HPF (0-4) Urine Squamous Epithelial Cells None /LPF Urine Bacteria 0 /HPF (0-FEW) Urine Opiates Screen Neg (NEG) Urine Methadone Screen Neg (NEG) Urine Barbiturates Neg (NEG) Urine Phencyclidine Screen Neg (NEG) Urine Amphetamine/Methamphetamine Neg (NEG) Urine Benzodiazepines Screen Neg (NEG) Urine Cocaine Screen Neg (NEG) Urine Cannabinoids Screen Neg (NEG) Urine Ethyl Alcohol Neg (NEG) Laboratory Tests Test 03/05/17 13:25 03/05/17 15:34 03/06/17 05:00 White Blood Count 9.6 x10^3/uL (4.0-11.0) 10.1 x10^3/uL (4.0-11.0) Red Blood Count 4.63 x10^6/uL (4.30-5.70) 4.45 x10^6/uL (4.30-5.70) Hemoglobin 15.4 g/dL (13.0-17.5) 14.6 g/dL (13.0-17.5) Hematocrit 44.1 % (39.0-53.0) 41.5 % (39.0-53.0) Mean Corpuscular Volume 95 fL (79-100) 93 fL (79-100) Mean Corpuscular Hemoglobin 33 pg (25-35) 33 pg (25-35) Mean Corpuscular Hemoglobin Concent 35 g/dL (31-37) 35 g/dL (31-37) Red Cell Distribution Width 12.8 % (11.5-14.5) 12.9 % (11.5-14.5) Platelet Count 227 x10^3/uL (140-400) 209 x10^3/uL (140-400) Neutrophils (%) (Auto) 64 % (31-73) 61 % (31-73) Lymphocytes (%) (Auto) 24 % (24-48) 26 % (24-48) Monocytes (%) (Auto) 8 % (0-9) 9 % (0-9) Eosinophils (%) (Auto) 4 % (0-3) 4 % (0-3) Basophils (%) (Auto) 1 % (0-3) 1 % (0-3) Neutrophils # (Auto) 6.1 x10^3uL (1.8-7.7) 6.2 x10^3uL (1.8-7.7) Lymphocytes # (Auto) 2.3 x10^3/uL (1.0-4.8) 2.6 x10^3/uL (1.0-4.8) Monocytes # (Auto) 0.7 x10^3/uL (0.0-1.1) 0.9 x10^3/uL (0.0-1.1) Eosinophils # (Auto) 0.4 x10^3/uL (0.0-0.7) 0.4 x10^3/uL (0.0-0.7) Basophils # (Auto) 0.1 x10^3/uL (0.0-0.2) 0.1 x10^3/uL (0.0-0.2) Prothrombin Time 13.9 SEC (11.7-14.0) Prothromb Time International Ratio 1.1 (0.8-1.1) Activated Partial Thromboplast Time 34 SEC (24-38) Sodium Level 141 mmol/L (136-145) 142 mmol/L (136-145) Potassium Level 4.1 mmol/L (3.5-5.1) 4.1 mmol/L (3.5-5.1) Chloride Level 105 mmol/L (98-107) 108 mmol/L (98-107) Carbon Dioxide Level 27 mmol/L (21-32) 26 mmol/L (21-32) Anion Gap 9 (6-14) 8 (6-14) Blood Urea Nitrogen 19 mg/dL (8-26) 16 mg/dL (8-26) Creatinine 1.0 mg/dL (0.7-1.3) 1.1 mg/dL (0.7-1.3) Estimated GFR (Cockcroft-Gault) 71.9 64.4 BUN/Creatinine Ratio 19 (6-20) Glucose Level 136 mg/dL (70-99) 105 mg/dL (70-99) Lactic Acid Level 2.0 mmol/L (0.4-2.0) Calcium Level 9.0 mg/dL (8.5-10.1) 8.8 mg/dL (8.5-10.1) Magnesium Level 2.0 mg/dL (1.8-2.4) Total Bilirubin 0.6 mg/dL (0.2-1.0) Aspartate Amino Transf (AST/SGOT) 24 U/L (15-37) Alanine Aminotransferase (ALT/SGPT) 26 U/L (16-63) Alkaline Phosphatase 77 U/L (46-116) Creatine Kinase 107 U/L (39-308) Troponin I Quantitative < 0.017 ng/mL (0.000-0.055) WE-Gus-C-Type Natriuretic Peptide 36 pg/mL (0-449) Total Protein 7.2 g/dL (6.4-8.2) Albumin 3.6 g/dL (3.4-5.0) Albumin/Globulin Ratio 1.0 (1.0-1.7) Lipase 117 U/L (73-393) Thyroid Stimulating Hormone (TSH) 1.172 uIU/mL (0.358-3.74) Salicylates Level < 2.8 mg/dL (2.8-20.0) Salicylate Last Dose Date Unknown Salicylate Last Dose Time Unknown Acetaminophen Level < 2 mcg/ml (10-30) Acetaminophen Last Dose Date Unknown Acetaminophen Last Dose Time Unknown Ethyl Alcohol Level < 10 mg/dL (0-10) Urine Collection Type Unknown Urine Color Yellow Urine Clarity Clear Urine pH 7.0 Urine Specific [place] 1.010 Urine Protein Negative mg/dL (NEG-TRACE) Urine Glucose (UA) Negative mg/dL (NEG) Urine Ketones (Stick) Negative mg/dL (NEG) Urine Blood Negative (NEG) Urine Nitrite Negative (NEG) Urine Bilirubin Negative (NEG) Urine Urobilinogen Dipstick 0.2 mg/dL (0.2 mg/dL) Urine Leukocyte Esterase Negative (NEG) Urine RBC 0 /HPF (0-2) Urine WBC Rare /HPF (0-4) Urine Squamous Epithelial Cells None /LPF Urine Bacteria 0 /HPF (0-FEW) Urine Opiates Screen Neg (NEG) Urine Methadone Screen Neg (NEG) Urine Barbiturates Neg (NEG) Urine Phencyclidine Screen Neg (NEG) Urine Amphetamine/Methamphetamine Neg (NEG) Urine Benzodiazepines Screen Neg (NEG) Urine Cocaine Screen Neg (NEG) Urine Cannabinoids Screen Neg (NEG) Urine Ethyl Alcohol Neg (NEG) Medications Current Medications Sodium Chloride 1,000 ml @ 1,000 mls/hr 1X ONCE IV Last administered on 13:46; Start 03/05/17 at 13:30; Stop 03/05/17 at 14:29; Status DC Sodium Chloride 1,000 ml @ 125 mls/hr 1X ONCE IV Last administered on 16:25; Start 03/05/17 at 14:30; Stop 03/05/17 at 22:29; Status DC Ondansetron HCl (Zofran) 4 mg PRN Q8HRS PRN IV NAUSEA/VOMITING Last administered on 03/05/17 14:58; Start 03/05/17 at 14:45; Stop 03/06/17 at 14:44 Fentanyl Citrate (Fentanyl 2ml Vial) 50 mcg PRN Q2HR PRN IV PAIN Last administered on 03/05/17 15:04; Start 03/05/17 at 14:45; Stop 03/06/17 at 14:44 Ondansetron HCl (Zofran) 8 mg 1X ONCE IV ; Start 03/05/17 at 15:00; Stop at 15:01; Status DC Pneumococcal Polyvalent Vaccine (Do NOT chart on this placeholder) 1 each 1X ONCE MC ; Start 03/05/17 at 16:30; Stop 03/05/17 at 16:31; Status UNV Pneumococcal Polyvalent Vaccine (Pneumovax 23) 0.5 ml ONCE ONCE VAX IM Last administered on 03/05/17 17:05; Start 03/05/17 at 18:00; Stop 03/05/17 at 18:01; Status DC Alprazolam (Xanax) 0.5 mg PRN BID PRN PO ANXIETY / AGITATION Last administered on 03/06/17 07:38; Start 03/05/17 at 19:30 Aspirin (Children'S Aspirin) 81 mg [id number] PO Last administered on 03/06/17 07:38; Start 03/06/17 at 08:00 Metoprolol Tartrate (Lopressor) 12.5 mg BID PO Last administered on 03/06/17 09 :04; Start 03/05/17 at 21:00 Pantoprazole Sodium (Protonix) 40 mg BIDAC PO Last administered on 03/06/17 07: 38; Start 03/05/17 at 21:00 Tramadol HCl (Ultram) 100 mg PRN Q6HRS PRN PO PAIN; Start 03/05/17 at 19:30 Active Scripts Active Reported Pantoprazole Sodium 40 Mg Tablet.dr 1 Tab PO BID Metoprolol Tartrate 25 Mg Tablet 12.5 Mg PO BID Tramadol Hcl 50 Mg Tablet 2 Tab PO PRN Q6HRS Alprazolam 0.5 Mg Tablet 1 Tab PO PRN BID Calcium + Vitamin D Tablet (Calcium Carbonate/Vitamin D3) 1 Each Tablet 1 Each PO Multi Vitamin Daily (Multivitamin) 1 Each Tablet 1 Each PO Children's Aspirin (Aspirin) 81 Mg Tab.chew 81 Mg PO Vitals/I & O Vital Sign - Last 24 Hours 03/05/17 03/05/17 03/05/17 03/05/17 13:08 14:33 15:04 15:50 Temp 97.7 95.9 97.7 95.9 Pulse 72 62 59 Resp 18 14 18 18 B/P (MAP) 122/71 (88) 106/58 (74) 131/78 (95) Pulse Ox 97 96 98 O2 Delivery Room Air Room Air Room Air 03/05/17 03/05/17 03/05/17 03/05/17 16:25 16:33 19:00 20:00 Temp 97.1 97.1 Pulse 62 Resp 16 18 B/P (MAP) 93/57 (69) Pulse Ox 94 O2 Delivery Room Air Room Air Room Air Room Air 03/05/17 03/06/17 03/06/17 03/06/17 23:00 03:00 03:21 07:45 Temp 97.7 97.5 96.5 97.7 97.5 96.5 Pulse 58 63 59 64 Resp 20 20 18 B/P (MAP) 117/74 (88) 118/70 (86) 118/67 143/79 (100) Pulse Ox 96 96 96 O2 Delivery BiPAP/CPAP BiPAP/CPAP Room Air 03/06/17 03/06/17 03/06/17 08:00 09:04 10:42 Temp 97.5 97.5 Pulse 59 65 Resp 18 B/P (MAP) 118/67 115/67 (83) Pulse Ox 94 O2 Delivery Room Air Room Air Intake and Output 03/05/17 03/05/17 03/06/17 15:00 23:00 07:00 Intake Total 300 ml 100 ml Balance 300 ml 100 ml KVNG ALCANTAR III DO Mar 06, 2017 12:38
--- NOTE | 2017-03-06 20:57 | DS ---
DATE OF DISCHARGE: 03/06/2017 ADMISSION DIAGNOSIS: Weakness and possible metabolic encephalopathy. DISCHARGE DIAGNOSIS: Resolving metabolic encephalopathy, resolving weakness. 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 Basically, he presented with weakness. He woke up and just was not feeling well. We admitted the patient. We gave him empiric fluids. We did some physical therapy, and now he is back to his baseline and wants to go home. DISPOSITION: Home. ACTIVITY: As tolerated. DIET: Low sodium. MEDICATIONS: Please see the MRAD. TOTAL TIME ON DISCHARGE: 31 minutes. KNVG ALCANTAR DO DR: ABDIRASHID/osmar JOB#: [id number] / [id number]
--- NOTE | 2017-03-07 02:55 | CONS ---
DATE OF CONSULTATION: 03/06/2017 HISTORY OF PRESENT ILLNESS: This is an 81-year-old white male, who came into the Emergency Room, because of profound weakness. He also pointed to the retrosternal area and he said that he felt weakness in his chest. He would not call it a pain or a pressure. He started to experience at that morning while breakfast. He then went to lay down for 2 hours, thinking that it may resolve. Because it did not, he came to the Emergency Room. He has had those episodes of weakness off and on all day yesterday and today. It has not resolved, but it seems to be better. He gives no history of hypertension or diabetes mellitus. There is no history of dyslipidemia. He has had some retrosternal symptoms in the past. He sees Dr. Mccormack. Dr. Sahu requested a myocardial perfusion imaging study at the end of January, it was normal. He was then placed on Protonix. There is no history of myocardial infarction or of a stroke. He stopped smoking about 20 years ago. He takes alcohol only occasionally. PRESENT MEDICATIONS: Alprazolam 0.5 mg p.r.n. and he rarely takes it, aspirin 81 mg a day, calcium carbonate with vitamin D, metoprolol tartrate 12.5 mg twice a day, multivitamins, Protonix 40 mg twice a day and tramadol. About 2 weeks ago, he ruptured his quadriceps muscle. This is being very painful. He normally plays good game of tennis. Despite this rupture, he went and played tennis even though it hurt him. He had lot of pain after that. He was taking tramadol, but he has not been taking tramadol for 2 days. He is scheduled to see Dr. Cast and Dr. Ramsey next week. He continues to work in [employer] in [employer]. 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 He has been on vacation for the last one month. He is very active as stated before placed tennis goes up and down stairs and has had no chest discomfort or shortness of breath with this level of activity. PHYSICAL EXAMINATION: GENERAL: He was in no distress. He was disappointed that he is still having the symptoms and no etiology was detected. He is oriented. VITAL SIGNS: The heart rate was 70 per minute and regular. The blood pressure was 140/80. LUNGS: Clear. HEART: The heart sounds are normal with no murmur or gallop. LABORATORY DATA: An EKG was normal. The initial troponin was negative. The hemoglobin is 14.6. The potassium was 4.1. The creatinine was 1.1. The blood sugars were normal. The lactic acid was 2. The calcium was 8.8. The TSH was 1.172. Since repeat troponin was not done. The lab was requested to do that on the blood that was drawn this morning and it was again less than 0.017. I reviewed the study that was done on 01/28/2016 to see if there are any telltale signs of balanced circulation. He had no transient ischemic dilatation of the left ventricle. There were no electrocardiographic changes with Lexiscan. There is no right ventricular uptake. Thus, it is very unlikely that the study was in false negative test. He does not have sufficient risk factors other than his age. There were no telltale signs of balanced circulation. This being the case, the patient and the family were told that even though he has the retrosternal discomfort. He has been worked up and it is very unlikely that he has underlying coronary artery disease. Holding him over and doing coronary arteriograms is probably not necessary. He had already been discharged by Dr. Delgado. He was thus told that I had no reason to keep him over. It would be unreasonable to keep him over to do an EGD. He was satisfied with our conversations and agreed that he would go home. He will contact Dr. Mccormack on the morning of ____ Dr. Mccormack will be back. IMPRESSION: 1. Weakness, etiology unclear. 2. History of ruptured quadriceps. SIERRA JAMISON MD DR: TRINIDAD/osmar JOB#: [id number] / [id number]
== END 2017-03-06 16:00 | disposition home or self-care (01) | DRG 72 ==
LOC: ER 13:00 → 5 NORTH 14:21
PROVIDERS: ADMIT Internal Medicine; ATTEND Internal Medicine
DX: G93.41 Metabolic encephalopathy (principal); I49.3 Ventricular premature depolarization; K21.9 Gastro-esophageal reflux disease without esophagitis; Z90.49 Acquired absence of other specified parts of digestive tract; Z87.891 Personal history of nicotine dependence; Z87.738 Personal history of other specified (corrected) congenital malformations of digestive system; Z83.3 Family history of diabetes mellitus; Z79.899 Other long term (current) drug therapy; Z79.1 Long term (current) use of non-steroidal anti-inflammatories (NSAID)
CPT/HCPCS: 36415; 70450; 71010; 80048; 80053; 80329; 81001; 82550; 83605; 83690; 83735; 83880; 84443; 84484; 85027; 85610; 85730; 90732; 93005; 96374; 96375; G0480; G0481; J2405; J3010; J7030; 99285-25

== ENCOUNTER → 2017-03-16 | Outpatient (CLI) | payer MEDICARE ==
[2017-03-06 10:42] VITALS: BP 115/67
[~2017-03-16] MED LIST changes: +ALPR0.5T6 PO; -ESCI10TA PO; +ESCITALOPRAM OX10 MG PO; +ESCITALOPRAM OXA5 MG PO; +PANT40TA5 PO
--- NOTE | 2017-03-16 08:50 | RAD ---
Abdominal ultrasound, 03/16/2017: History: Abdominal pain The gallbladder is within normal limits in size. There is no sonographic evidence of cholelithiasis. The gallbladder guzman are not thickened. No bile duct dilatation is seen. There is no evidence of a hepatic mass. The pancreas was not adequately visualized due to overlying bowel. The spleen is of normal size. The kidneys show no evidence of obstruction. There is a 2 cm cyst in the lower pole of the left kidney. There is mild aortic atherosclerosis without evidence of aneurysm. The visualized portions of the inferior vena cava are unremarkable. No free fluid is evident in the abdomen. IMPRESSION: 1. Small left renal cyst. 2. No acute abdominal abnormality is detected.
== END | disposition home or self-care (01) ==
LOC: US 06:47
PROVIDERS: ATTEND Physician Assistant
DX: R10.9 Unspecified abdominal pain (principal); R07.9 Chest pain, unspecified
CPT/HCPCS: 76700

== ENCOUNTER → 2017-03-18 | Outpatient (CLI) | payer MEDICARE ==
[2017-03-06 10:42] VITALS: BP 115/67
[~2017-03-18] MED LIST changes: +IOHEXOL 180 MG/ML 10 ML VIAL. ONE; +methylPREDNISolone ACETATE 40 MG/ML VIAL. ONE; +methylPREDNISolone ACETATE 80 MG/ML VIAL. ONE
--- NOTE | 2017-03-18 16:52 | PAIN ---
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 HISTORY OF PRESENT ILLNESS: The patient is an 81-year-old male who returns for followup status post lumbar epidural steroid injections, last seen in 11/2014. The patient did very well with his last injection, reports about 75% improvement, has been having a difficult to remember when the pain began to return again, but over the past several months has been much more noticeable in the low back, at this time in the left lower extremity. Previously it was in the right lower extremity, now it is in the left, in the posterior gluteus, posterior thigh, posterior knee, posterior calf radiating, aching anywhere from 0-8 on a scale of 10, worse with standing and walking, changing positions. The patient reports it does not awaken him from sleep at night. He feels better with lying down. The patient reports no new motor or sensory deficits. No new bowel or bladder incontinence, but still significant pain again with activity. The patient has recently seen his neurosurgeon who is recommending conservative treatment at this time. He did have an MRI scan of lumbar spine showing multilevel degenerative changes throughout the thoracic and lumbar spine with foraminal and central canal stenosis at multiple levels, lumbar scoliosis and grade 1 anterolisthesis of L4 on L5 and L5 on S1 with previous right hemilaminectomy at L4-L5. PHYSICAL EXAMINATION: VITAL SIGNS: The patient's blood pressure 100/61, pulse 66, respirations are 20, temperature is 97.9 degrees Fahrenheit. Height is 5 feet 8 inches, weighs ____ pounds. GENERAL: The patient is awake, alert, oriented, appropriate, very pleasant demeanor. HEENT: Head shows normocephalic, atraumatic. Extraocular movements are intact and symmetrical. Oral cavity shows mucous membranes moist and pink. Dentition is intact. NECK: Shows anterior throat supple. Swallow reflex is symmetrical. CHEST: Shows normal on inspection. Breath sounds clear to auscultation bilaterally. HEART: Shows S1 and S2 clear. ABDOMEN: Soft, nontender, nondistended. No palpable organomegaly is noted. No rebound or guarding demonstrated. BACK: Shows spine grossly in the midline. Normal appearing thoracic kyphosis and mild flattening of lumbar lordotic curvature. Well healed surgical scars noted in the lumbar distribution. Lumbar paraspinous musculature is symmetrical on inspection with palpation shows some mild tenderness, but only diffusely in the lower lumbar distribution, paraspinous muscles without radiation. No tenderness over the sacrum or sacroiliac regions. The patient shows good rotational motion both laterally as well as extension and flexion without exacerbation of pain in the lumbar spine. EXTREMITIES: Lower extremities show deep tendon reflexes at 2+ in the patellar, 1+ tendo calcaneus tendons. Motor exam is strong with 5/5 dorsiflexion, extension, quadriceps and hamstring flexion. Options were discussed with the patient and the patient's old chart was reviewed as his current medication regimen updated. Current review of systems updated today as well. We will proceed with a lumbar epidural steroid injection with fluoroscopic guidance today. Risks were again discussed including, but not limited to bleeding, infection, possibility of epidural hematoma, subsequent neurologic compromise, dural puncture, headaches, spinal cord and/or nerve damage, side effects of steroid medication and poor results regarding pain control. The patient understands and wishes to proceed. The patient will return to the clinic in approximately 2 weeks for followup, was counseled on return appointment, activity level, and side effects to be aware of. DIAGNOSIS: Lumbar radiculopathy with lumbar degenerative disk disease and post-lumbar laminectomy syndrome. PROCEDURE: Lumbar epidural steroid injection in translaminar approach at the L5-S1 level using C-arm fluoroscopic guidance under sterile prep and drape using local anesthetic. MEDICATIONS INJECTED: 120 mg Depo-Medrol plus 10 mL of preservative-free normal saline and 2 mL Isovue for contrast. CONDITION AT DISCHARGE: Stable. The patient tolerated procedure well, had no complications. CAROLINE CASTELLANOS MD DR: CHAI/osmar JOB#: [id number] / [id number]
== END | disposition home or self-care (01) ==
LOC: PNCL 08:45
PROVIDERS: ATTEND Anesthesiology
DX: M51.16 Intervertebral disc disorders with radiculopathy, lumbar region (principal); M96.1 Postlaminectomy syndrome, not elsewhere classified; K21.9 Gastro-esophageal reflux disease without esophagitis; F41.9 Anxiety disorder, unspecified; Z87.39 Personal history of other diseases of the musculoskeletal system and connective tissue; Z88.1 Allergy status to other antibiotic agents
CPT/HCPCS: 62323; J1030; J1040

== ENCOUNTER → 2017-04-01 | Outpatient (CLI) | payer MEDICARE ==
[2017-03-06 10:42] VITALS: BP 115/67
== END | disposition home or self-care (01) ==
LOC: PNCL 08:31
PROVIDERS: ATTEND Anesthesiology
DX: M51.36 Other intervertebral disc degeneration, lumbar region (principal); Z88.3 Allergy status to other anti-infective agents
CPT/HCPCS: 62323; J1030; J1040

== ENCOUNTER → 2017-04-15 | Outpatient (CLI) | payer MEDICARE ==
[~2017-04-15] MED LIST changes: +BUPIVACAINE MPF 0.25% 10 ML VIAL. ONE; -IOHEXOL 180 MG/ML 10 ML VIAL. ONE; -methylPREDNISolone ACETATE 40 MG/ML VIAL. ONE
== END | disposition home or self-care (01) ==
LOC: PNCL 07:44
PROVIDERS: ATTEND Anesthesiology
DX: M70.71 Other bursitis of hip, right hip (principal); M51.16 Intervertebral disc disorders with radiculopathy, lumbar region; M96.1 Postlaminectomy syndrome, not elsewhere classified; K21.9 Gastro-esophageal reflux disease without esophagitis; F41.9 Anxiety disorder, unspecified; Z87.39 Personal history of other diseases of the musculoskeletal system and connective tissue; Z88.1 Allergy status to other antibiotic agents
CPT/HCPCS: 20610; 77002; J1040; J3490; 20605

== ENCOUNTER 2020-12-21 14:32 | Emergency (ER) | payer MEDICARE ==
[~2020-12-21] VITALS: Ht 170.2 cm; Wt 86.0 kg
[~2020-12-21 14:32] MED LIST changes: -ASPI81TA44 PO; +ASPI81TA59 PO; -BUPIVACAINE MPF 0.25% 10 ML VIAL. ONE; -PANT40TA3 PO; -PANT40TA5 PO; +PANT40TA77 PO; -methylPREDNISolone ACETATE 80 MG/ML VIAL. ONE
--- NOTE | 2020-12-21 16:23 | PHYS DOC ---
Past Medical History Past Medical History: Diverticulitis, GERD, Other Additional Past Medical Histor: PVC's Past Surgical History: Appendectomy, Other Additional Past Surgical Histo: abdominal surgery for pyloric stenosis as an , back, cardiac stents Smoking Status: Former Smoker Alcohol Use: Occasionally Drug Use: None General Adult EDM: Chief Complaint: CONSTIPATION HPI: HPI: Patient is a 85 year old female who presents with 1 week of constipation. States he is having some nausea and increasing abdominal pressure and aching pain. He rates his discomfort at a 10 out of 10. He states that he has tried MiraLAX, milk of magnesia, enema with no success. He states that he went to an urgent care and they said that he had a hernia present in the umbilical area. States that he does see GI doctor Propeck for diverticulitis. He states that the urgent care doctor told him that he should start taking Cipro or Flagyl for diverticulitis. He states that he is allergic to the Flagyl. Patient denies chest pain, shortness of air, fever, back pain, urinary symptoms, vomiting, numbness or tingling, focal weakness, headache, dizziness. Review of Systems: Review of Systems: Constitutional: Denies fever or chills. [] Eyes: Denies change in visual acuity. [] HENT: Denies nasal congestion or sore throat. [] Respiratory: Denies cough or shortness of breath. [] Cardiovascular: Denies chest pain or edema. [] GI: +abdominal pain, +nausea, vomiting, +constipation, bloody stools or diarrhea. [] : Denies dysuria. [] Musculoskeletal: Denies back pain or joint pain. [] Integument: Denies rash. [] Neurologic: Denies headache, focal weakness or sensory changes. [] Endocrine: Denies polyuria or polydipsia. [] Lymphatic: Denies swollen glands. [] Psychiatric: Denies depression or anxiety. [] Heart Score: C/O Chest Pain: No Risk Factors: Risk Factors: DM, Current or recent (<one month) smoker, HTN, HLP, family his tory of CAD, obesity. Risk Scores: Score 0 - 3: 2.5% MACE over next 6 weeks - Discharge Home Score 4 - 6: 20.3% MACE over next 6 weeks - Admit for Clinical Observation Score 7 - 10: 72.7% MACE over next 6 weeks - Early Invasive Strategies Allergies: Allergies: Allergies Coded Allergies Type Severity Reaction Last Updated Verified Sulfa (Sulfonamide Antibiotics) Allergy Intermediate 12/21/20 Yes ampicillin Allergy Intermediate 12/21/20 Yes metronidazole Allergy Intermediate 12/21/20 No sulbactam Allergy Intermediate 12/21/20 Yes sulfamethoxazole Allergy Intermediate 12/21/20 Yes trimethoprim Allergy Intermediate 12/21/20 Yes Physical Exam: PE: Constitutional: Well developed, well nourished, no acute distress, non-toxic ap pearance. [] HENT: Normocephalic, atraumatic, bilateral external ears normal, oropharynx moist, no oral exudates, nose normal. [] Eyes: PERRLA, EOMI, conjunctiva normal, no discharge. [] Neck: Normal range of motion, no tenderness, supple, no stridor. [] Cardiovascular:Heart rate regular rhythm, no murmur [] Lungs & Thorax: Bilateral breath sounds clear to auscultation [] Abdomen: Bowel sounds normal, soft, left upper quadrant on tenderness, no masses, no pulsatile masses. [] Skin: Warm, dry, no erythema, no rash. [] Back: No tenderness, no CVA tenderness. [] Extremities: No tenderness, no cyanosis, no clubbing, ROM intact, no edema. [] Neurologic: Alert and oriented X 3, normal motor function, normal sensory function, no focal deficits noted. [] Psychologic: Affect normal, judgement normal, mood normal. [] Current Patient Data: Vital Signs: Vital Signs Date Time Temp Pulse Resp B/P (MAP) Pulse Ox O2 Delivery O2 Flow Rate FiO2 12/21/20 15:30 98.8 64 16 111/67 (82) 99 Room Air 98.8 EKG: EK and read by dr crespo as sinus rhythm and no stemi Radiology/Procedures: Radiology/Procedures: [] Impression: [facility] [address] [place] [address] IMAGING REPORT Signed PATIENT: NABOR GRIFFITHS ACCOUNT: [id number] : 1935 LOCATION: ER AGE: 85 SEX: M EXAM STATUS: REG ER ORD. PHYSICIAN: MINISTERIO FLANNERY APRN REASON: nausea, abd pain PROCEDURE: PORTABLE CHEST 1V Exam performed: One view chest. Indication: Reason: nausea, abd pain / Spl. Instructions: / History: Date of Service: 12/21/2020 4:19 PM Comparison: None available Single AP upright portable view chest findings: Cardiomediastinal silhouette is within limits of normal. No acute infiltrates, effusion or pneumothorax is detected. The bony structures are normal. Impression: No acute cardiopulmonary process is detected. Electronically signed by: Bev Jules MD (12/21/2020 4:32 PM) [facility] DICTATED and SIGNED BY: BEV JULES MD DATE: 12/21/20 [id number] [facility] [address] [place] [address] IMAGING REPORT Signed PATIENT: NABOR GRIFFITHS ACCOUNT: [id number] : 1935 LOCATION: ER AGE: 85 SEX: M EXAM STATUS: REG ER ORD. PHYSICIAN: MINISTERIO FLANNERY APRN REASON: abd tenderness, nausea, constipation PROCEDURE: CT ABD PELV W/ IV CONTRST ONLY Exam: CT of abdomen and pelvis with contrast INDICATION: Abdominal tenderness, nausea and constipation TECHNIQUE: Sequential axial images through the abdomen and pelvis obtained following the administration of 60 mL of Omni 300 IV contrast. Sagittal and c oronal reformatted images were reconstructed from the axial data and reviewed. Comparisons: None FINDINGS: Heart size is normal. No pericardial effusion. Strandy opacities at dependent portion lungs likely representing atelectasis. There is a 5 mm nodule at the right lower lobe series 2 image 1. Liver, spleen, pancreas, gallbladder and adrenals are unremarkable. Nonobstructing 2 mm calculus the right kidney. No ureteral calculi are identified. Bladder is stented appears thin-walled. Prostate is not enlarged. Diverticulosis noted at the sigmoid colon without evidence of acute diverticulitis. Remainder large and small bowel are unremarkable. Appendix is nonidentified. No free intra-abdominal air or fluid. No obstruction. Abdominal aorta has a normal course and caliber. Abdominal vasculature is patent. No enlarged intra-abdominal lymph nodes are identified. No suspicious osseous lesions or acute fractures. IMPRESSION: 1. No acute processes identified within the abdomen or pelvis. 2. Diverticulosis without evidence of acute diverticulitis. 3. A 2 mm nonobstructing right renal calculus. Exposure: One or more of the following in the visualized dose reduction techniques were utilized for this examination: 1. Automated exposure control 2. Adjustment of the MA and/or KV according to patient size 3. Use of iterative of reconstructive technique Electronically signed by: Alex Hebert MD (12/21/2020 5:30 PM) [facility] DICTATED and SIGNED BY: ALEX HEBERT MD DATE: 12/21/20 [id number] Course & Med Decision Making: Course & Med Decision Making Pertinent Labs and Imaging studies reviewed. (See chart for details) See HPI. Patient's abdomen is distended, soft and very tender to the left upper quadrant. Skin pink warm and dry. Alert and orient x4. Speaks in full complete sentences. Ambulatory with a steady gait. Blood work unremarkable. CT abdomen pelvis shows a 2 mm stone within the right kidney, diverticulosis and otherwise no acute abnormalities. He does have a large amount of stool as seen by Dr Crespo. I have ordered a soapsuds enema. Patient had a large bowel movement and is feeling better. Patient can follow-up with his primary care provider or Dr. Wooten. [] Jesika Disclaimer: Dragon Disclaimer: This electronic medical record was generated, in whole or in part, using a voice recognition dictation system. Departure Departure Impression: Primary Impression: Constipation Qualified Codes: K59.00 - Constipation, unspecified Additional Impression: Abdominal bloating Disposition: 01 DC HOME SELF CARE/HOMELESS Condition: STABLE Referrals: TWIN CALDERON (PCP) SONU WOOTEN MD Patient Instructions: Constipation, Adult Additional Instructions: Drink plenty of fluids. Follow-up with your primary care doctor or your GI doctor. Do not take the Cipro and the Flagyl unless directed by your primary care or the GI doctor. If you begin having severe vomiting or abdominal pain return to emergency room. MINISTERIO FLANNERY APRN Dec 21, 2020 16:23
[2020-12-21 16:30] LABS: BASO # 0.1 x10^3/uL (0.0-0.2); BASO % 1 % (0-3); EOS # 0.6 x10^3/uL (0.0-0.7); EOS % 7 % (0-3); HEMATOCRIT 37.8 % (39.0-53.0); HEMOGLOBIN 13.3 g/dL (13.0-17.5); LYMPH # 2.3 x10^3/uL (1.0-4.8); LYMPH % 26 % (24-48); MEAN CORPUSCULAR HEMOGLOBIN 33 pg (25-35); MEAN CORPUSCULAR HGB CONC 35 g/dL (31-37); MEAN CORPUSCULAR VOLUME 93 fL (79-100); MONO # 0.9 x10^3/uL (0.0-1.1); MONO % 10 % (0-9); NEUT % 56 % (31-73); PLATELET COUNT 223 x10^3/uL (140-400); RED BLOOD COUNT 4.08 x10^6/uL (4.30-5.70); RED CELL DISTRIBUTION WIDTH 12.5 % (11.5-14.5); WHITE BLOOD COUNT 8.9 x10^3/uL (4.0-11.0)
--- NOTE | 2020-12-21 16:35 | RAD ---
Exam performed: One view chest. Indication: Reason: nausea, abd pain / Spl. Instructions: / History: Date of Service: 12/21/2020 4:19 PM Comparison: None available Single AP upright portable view chest findings: Cardiomediastinal silhouette is within limits of normal. No acute infiltrates, effusion or pneumotho rax is detected. The bony structures are normal. Impression: No acute cardiopulmonary process is detected. Electronically signed by: Bev Jules MD (12/21/2020 4:32 PM) [facility]
[2020-12-21 16:44] LABS: CALCIUM 8.6 mg/dL (8.5-10.1); CREATININE 1.2 mg/dL (0.7-1.3); GFR 57.7; POTASSIUM 4.1 mmol/L (3.5-5.1)
[2020-12-21 16:50] LABS: ALBUMIN 3.3 g/dL (3.4-5.0); TOTAL BILIRUBIN 0.5 mg/dL (0.2-1.0); TOTAL PROTEIN 6.5 g/dL (6.4-8.2)
[2020-12-21] MEDS ORDERED: CONTRAST GIVEN. MC PRN (17:00)
[2020-12-21] MEDS ORDERED: IOHEXOL 300 MG/ML 100ML VIAL. IV ONE (17:00)
[2020-12-21 17:11] LABS: BILIRUBIN,URINE NEGATIVE (NEG); CLARITY,URINE CLEAR; COLOR,URINE YELLOW; NITRITE,URINE NEGATIVE (NEG); PH,URINE 6.5 (<5.0-8.0); PROTEIN,URINE NEGATIVE (NEG-TRACE); UROBILINOGEN,URINE 0.2 mg/dL (0.2 mg/dL)
[2020-12-21 17:19] LABS: BACTERIA,URINE 0 /HPF (0-FEW); RBC,URINE 0 /HPF (0-2)
--- NOTE | 2020-12-21 17:32 | RAD ---
Exam: CT of abdomen and pelvis with contrast INDICATION: Abdominal tenderness, nausea and constipation TECHNIQUE: Sequential axial images through the abdomen and pelvis obtained following the administrati on of 60 mL of Omni 300 IV contrast. Sagittal and coronal reformatted images were reconstructed from the axial data and reviewed. Comparisons: None FINDINGS: Heart size is normal. No pericardial effusion. Strandy opacities at dependent portion lungs likely re presenting atelectasis. There is a 5 mm nodule at the right lower lobe series 2 image 1. Liver, spleen, pancreas, gallbladder and adrenals are unremarkable. Nonobstructing 2 mm calculus the right kidney. No ureteral calculi are identified. Bladder is stented appears thin-walled. Prostate is not enlarged. Diverticulosis noted at the sigmoid colon without evidence of acute diverticulitis. Remainder large a nd small bowel are unremarkable. Appendix is nonidentified. No free intra-abdominal air or fluid. No obstruction. Abdominal aorta has a normal course and caliber. Abdominal vasculature is patent. No enlarged intra-abdominal lymph nodes are identified. No suspicious osseous lesions or acute fractures. IMPRESSION: 1. No acute processes identified within the abdomen or pelvis. 2. Diverticulosis without evidence of acute diverticulitis. 3. A 2 mm nonobstructing right renal calculus. Exposure: One or more of the following in the visualized dose reduction techniques were utilized for this examination: 1. Automated exposure control 2. Adjustment of the MA and/or KV according to patient size 3. Use of iterative of reconstructive technique Electronically signed by: Alex Alvarez MD (12/21/2020 5:30 PM) [facility]
[2020-12-21 19:15] VITALS: BP 114/75
--- NOTE | 2020-12-21 20:28 | EKG ---
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
== END 2020-12-21 19:19 | disposition home or self-care (01) ==
LOC: ER 14:32
DX: K59.00 Constipation, unspecified (principal); R14.0 Abdominal distension (gaseous); R11.2 Nausea with vomiting, unspecified; K21.9 Gastro-esophageal reflux disease without esophagitis; Z87.891 Personal history of nicotine dependence; Z90.89 Acquired absence of other organs; Z98.890 Other specified postprocedural states; Z88.2 Allergy status to sulfonamides; Z88.1 Allergy status to other antibiotic agents; Z88.8 Allergy status to other drugs, medicaments and biological substances; Z88.6 Allergy status to analgesic agent
CPT/HCPCS: 36415; 71045; 74177; 80053; 81001; 83690; 84484; 85025; 87086; 93005; 99285; Q9967

== ENCOUNTER 2021-04-16 17:09 | Emergency (ER) | payer MEDICARE ==
[~2021-04-16] VITALS: Ht 170.2 cm; Wt 89.0 kg
--- NOTE | 2021-04-16 17:33 | PHYS DOC ---
Past Medical History Past Medical History: Diverticulitis, GERD, Other Additional Past Medical Histor: PVC's (IMELDA ROSS DO) Past Surgical History: Appendectomy, Other Additional Past Surgical Histo: abdominal surgery for pyloric stenosis as an , back, cardiac stents (IMELDA ROSS DO) Smoking Status: Former Smoker Alcohol Use: Occasionally Drug Use: None (IMELDA ROSS DO) General Adult EDM: Chief Complaint: DIZZY/LIGHT HEADED HPI: HPI: Patient is a 85 year old male who present to ER for evaluation of intermittent episodes of dizziness and headache for about 2 days. Patient said he was outside playing tennis 2 days ago early in the morning. After he came home he started having headache and dizziness. Nothing made the headache worse or better, nothing makes her dizzy and is worse or better. Patient denies any injury. Patient denies any chest pain or any trouble breathing. Patient denies any cough or fever. Patient said the headache is on frontal forehead and face area. Patient said he wants to sleep most of the time. Denies any focal weakness or numbness, no slurred speech. (IMELDA ROSS DO) Review of Systems: Review of Systems: Constitutional: Denies fever or chills. [] Eyes: Denies change in visual acuity. [] HENT: Denies nasal congestion or sore throat. [] Respiratory: Denies cough or shortness of breath. [] Cardiovascular: Denies chest pain or edema. [] GI: Denies abdominal pain, nausea, vomiting, bloody stools or diarrhea. [] : Denies dysuria. [] Musculoskeletal: Denies back pain or joint pain. [] Integument: Denies rash. [] Neurologic: Positive headache, dizziness, no focal weakness or numbness, no sensory changes Endocrine: Denies polyuria or polydipsia. [] Lymphatic: Denies swollen glands. [] Psychiatric: Denies depression or anxiety. [] (IMELDA ROSS DO) Heart Score: C/O Chest Pain: N/A Risk Factors: Risk Factors: DM, Current or recent (<one month) smoker, HTN, HLP, family history of CAD, obesity. Risk Scores: Score 0 - 3: 2.5% MACE over next 6 weeks - Discharge Home Score 4 - 6: 20.3% MACE over next 6 weeks - Admit for Clinical Observation Score 7 - 10: 72.7% MACE over next 6 weeks - Early Invasive Strategies (IMELDA ROSS DO) C/O Chest Pain: N/A (VIJAY CRABTREE DO) Allergies: Allergies: Allergies Coded Allergies Type Severity Reaction Last Updated Verified Sulfa (Sulfonamide Antibiotics) Allergy Intermediate 12/21/20 Yes ampicillin Allergy Intermediate 12/21/20 Yes metronidazole Allergy Intermediate 12/21/20 No sulbactam Allergy Intermediate 12/21/20 Yes sulfamethoxazole Allergy Intermediate 12/21/20 Yes trimethoprim Allergy Intermediate 12/21/20 Yes (IMELDA ROSS DO) Physical Exam: PE: Constitutional: Well developed, well nourished, no acute distress, non-toxic appearance. [] HENT: Normocephalic, atraumatic, left external ear with cerumen impaction, right external ear canal is clear, free of cerumen, oropharynx moist, no oral exudates, nose normal. [] Eyes: VELMA, EOMI, conjunctiva normal, no discharge. [] Neck: Normal range of motion, no tenderness, supple, no stridor. [] Cardiovascular:Heart rate regular rhythm, no murmur [] Lungs & Thorax: Bilateral breath sounds clear to auscultation [] Abdomen: Bowel sounds normal, soft, no tenderness, no masses, no pulsatile masses. [] Skin: Warm, dry, no erythema, no rash. [] Back: No tenderness, no CVA tenderness. [] Extremities: No tenderness, no cyanosis, no clubbing, ROM intact, no edema. [] Neurologic: Alert and oriented X 3, normal motor function, normal sensory function, no focal deficits noted. [] Psychologic: Affect normal, judgement normal, mood normal. [] (IMELDA ROSS DO) EKG: EKG: [] (IMELDA ROSS DO) EKG: Performed at 1832 Rate [address] elevation No ST depression No acute RI (VIJAY CRABTREE DO) Radiology/Procedures: Radiology/Procedures: [][facility] [address] [place] [address] IMAGING REPORT Signed PATIENT: NABOR GRIFFITHS ACCOUNT: [id number] : 1935 LOCATION: ER AGE: 85 SEX: M EXAM STATUS: PRE ER ORD. PHYSICIAN: IMELDA ROSS DO REASON: HEADACHE AND DIZZINESS FOR 2 DAYS PROCEDURE: CT HEAD WO CONTRAST PQRS Compliance Statement: One or more of the following individualized dose reduction techniques were utilized for this examination: 1. Automated exposure control 2. Adjustment of the mA and/or kV according to patient size 3. Use of iterative reconstruction technique CT head without contrast 04/16/2021 5:31 PM INDICATION: Headache and dizziness for 2 days COMPARISON: CT head 03/05/2017 TECHNIQUE: Multiple axial CT images of the head were obtained from skull base through the vertex without intravenous contrast. FINDINGS: Head: Ventricles, sulci and basal cisterns are prominent compatible with mild generalized cerebral volume loss.. Low-attenuation in the periventricular white matter is suggestive of chronic small vessel ischemic changes. There is no hydrocephalus. Hunter-white matter differentiation is normal. There is no acute intracranial hemorrhage. There is no mass, mass effect or midline shift. Posterior fossa is normal in appearance. Visualized portions of the orbits are normal with exception of bilateral lens replacement. Paranasal there is moderate opacification of the ethmoid air cells. Mild mucosal thickening of the left frontal sinus. Mastoid air cells are well aerated. Scalp and calvaria are normal. IMPRESSION: No acute intracranial hemorrhage. Mild generalized cerebral volume loss. Low-attenuation in the periventricular white matter is suggestive of chronic small vessel ischemic changes. Moderate opacification of ethmoid air cells. Correlate with signs and symptoms of sinusitis. Electronically signed by: Renata Velasquez MD (04/16/2021 5:50 PM) [facility] DICTATED and SIGNED BY: RENATA VELASQUEZ MD DATE: 04/16/21 [id number] (IMELDA ROSS DO) Impression: FINDINGS: Head: Ventricles, sulci and basal cisterns are prominent compatible with mild generalized cerebral volume loss.. Low-attenuation in the periventricular white matter is suggestive of chronic small vessel ischemic changes. There is no hydr ocephalus. Hunter-white matter differentiation is normal. There is no acute intracranial hemorrhage. There is no mass, mass effect or midline shift. Posterior fossa is normal in appearance. Visualized portions of the orbits are normal with exception of bilateral lens replacement. Paranasal there is moderate opacification of the ethmoid air cells. Mild mucosal thickening of the left frontal sinus. Mastoid air cells are well aerated. Scalp and calvaria are normal. IMPRESSION: No acute intracranial hemorrhage. Mild generalized cerebral volume loss. Low-attenuation in the periventricular white matter is suggestive of chronic small vessel ischemic changes. Moderate opacification of ethmoid air cells. Correlate with signs and symptoms of sinusitis. (VIJAY CRABTREE DO) Course & Med Decision Making: Course & Med Decision Making Pertinent Labs and Imaging studies reviewed. (See chart for details) Patient is a 85-year-old male who present to ER due to headache and dizziness for the last [address] scan head shows some evidence of ethmoid sinusitis. Patient EKG and lab works are pending at this time. Patient care was transferred to the incoming physician at shift change Dr. Crabtree. (IMELDA ROSS DO) Course & Med Decision Making Assumed care at shift change disposition pending labs and radiologic imaging. Results reviewed and discussed with patient. Patient's labs within normal limits. CT head reviewed opacification of the sinuses. Patient ambulated with a normal steady gait. Patient states dizziness worse with movement. States he has had vertigo in the past and symptoms are similar. States he has taken meclizine in the past. Will prescribe patient antibiotic for sinusitis and meclizine for his dizziness. Patient advised to follow-up with primary care physician. (VIJAY CRABTREE DO) Dragon Disclaimer: Dragmarylou Disclaimer: This electronic medical record was generated, in whole or in part, using a voice recognition dictation system. (IMELDA ROSS DO) Departure Departure Impression: Primary Impression: Headache Additional Impressions: Sinusitis, acute ethmoidal Dizziness Disposition: HOME / SELF CARE / HOMELESS Condition: STABLE Referrals: TWIN CALDERON (PCP) Patient Instructions: Dizziness, Headache, FAQs, Sinusitis Scripts Azithromycin (ZITHROMAX) 250 Mg Tablet 1 PKG PO UD, #6 TAB Prov: VIJAY CRABTREE DO 04/16/21 Meclizine Hcl (MECLIZINE HCL) 25 Mg Tablet 1 TAB PO PRN TID, #30 TAB Prov: VIJAY CRABTREE DO 04/16/21 IMELDA ROSS DO Apr 16, 2021 17:33 VIJAY CRABTREE I DO Apr 16, 2021 18:42
--- NOTE | 2021-04-16 17:53 | RAD ---
PQRS Compliance Statement: One or more of the following individualized dose reduction techniques were utilized for this examinat ion: 1. Automated exposure control 2. Adjustment of the mA and/or kV according to patient size 3. Use of iterative reconstruction technique CT head without contrast 04/16/2021 5:31 PM INDICATION: Headache and dizziness for 2 days COMPARISON: CT head 03/05/2017 TECHNIQUE: Multiple axial CT images of the head were obtained from skull base through the vertex with out intravenous contrast. FINDINGS: Head: Ventricles, sulci and basal cisterns are prominent compatible with mild generalized cerebral volume l oss.. Low-attenuation in the periventricular white matter is suggestive of chronic small vessel [place] changes. There is no hydrocephalus. Hunter-white matter differentiation is normal. There is no acut e intracranial hemorrhage. There is no mass, mass effect or midline shift. Posterior fossa is normal in appearance. Visualized portions of the orbits are normal with exception of bilateral lens replacement. Paranasal there is moderate opacification of the ethmoid air cells. Mild mucosal thickening of the left frontal sinus. Mastoid air cells are well aerated. Scalp and calvaria are normal. IMPRESSION: No acute intracranial hemorrhage. Mild generalized cerebral volume loss. Low-attenuation in the periventricular white matter is suggestive of chronic small vessel ischemic ch anges. Moderate opacification of ethmoid air cells. Correlate with signs and symptoms of sinusitis. Electronically signed by: Tanisha Chun MD (04/16/2021 5:50 PM) [facility]
[2021-04-16 18:08] LABS: BASO # 0.1 x10^3/uL (0.0-0.2); BASO % 1 % (0-3); EOS # 0.6 x10^3/uL (0.0-0.7); EOS % 7 % (0-3); HEMATOCRIT 41.6 % (39.0-53.0); HEMOGLOBIN 14.3 g/dL (13.0-17.5); LYMPH # 2.7 x10^3/uL (1.0-4.8); LYMPH % 36 % (24-48); MEAN CORPUSCULAR HEMOGLOBIN 33 pg (25-35); MEAN CORPUSCULAR HGB CONC 34 g/dL (31-37); MEAN CORPUSCULAR VOLUME 95 fL (79-100); MONO # 0.6 x10^3/uL (0.0-1.1); MONO % 7 % (0-9); NEUT # 3.6 x10^3/uL (1.8-7.7); NEUT % 48 % (31-73); PLATELET COUNT 213 x10^3/uL (140-400); RED BLOOD COUNT 4.38 x10^6/uL (4.30-5.70); WHITE BLOOD COUNT 7.6 x10^3/uL (4.0-11.0)
[2021-04-16 18:21] LABS: CALCIUM 9.5 mg/dL (8.5-10.1); GFR 71.2; POTASSIUM 5.3 mmol/L (3.5-5.1)
[2021-04-16 18:26] LABS: ALBUMIN 3.7 g/dL (3.4-5.0); ALBUMIN/GLOBULIN RATIO 1.2 (1.0-1.7); MAGNESIUM 2.2 mg/dL (1.8-2.4); TOTAL BILIRUBIN 0.5 mg/dL (0.2-1.0); TOTAL PROTEIN 6.9 g/dL (6.4-8.2)
[2021-04-16 18:55] VITALS: BP 128/71
[2021-04-16] MEDS ORDERED: AZIT250T PO (19:01)
[2021-04-16] MEDS ORDERED: MECL-75 PO (19:01)
--- NOTE | 2021-04-16 19:51 | EKG ---
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
--- NOTE | 2021-04-16 22:01 | EKG ---
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
== END 2021-04-16 19:15 | disposition home or self-care (01) ==
LOC: ER 17:09
DX: J01.20 Acute ethmoidal sinusitis, unspecified (principal); R42 Dizziness and giddiness; K21.9 Gastro-esophageal reflux disease without esophagitis; Z87.891 Personal history of nicotine dependence; Z88.1 Allergy status to other antibiotic agents; Z88.2 Allergy status to sulfonamides; Z88.8 Allergy status to other drugs, medicaments and biological substances
CPT/HCPCS: 36415; 70450; 80053; 82550; 83735; 83880; 84484; 85025; 93005; 99285-25